=== PATIENT | female | born 1970 | race Caucasian/White ===

== ENCOUNTER 2022-11-19 13:25 | Outpatient (CLI) | payer BC | END 2022-11-19 13:26 | disposition home or self-care (01) | LOC: BICRAD 13:25 | PROVIDERS: ATTEND Internal Medicine | DX: Z08 Encounter for follow-up examination after completed treatment for malignant neoplasm (principal); Z85.528 Personal history of other malignant neoplasm of kidney | CPT/HCPCS: 71046 ==

== ENCOUNTER 2023-10-03 09:00 | Outpatient (CLI) | payer BC | END 2023-10-03 09:01 | disposition home or self-care (01) | LOC: BICMRI 09:00 | PROVIDERS: ATTEND Internal Medicine | DX: M25.561 Pain in right knee (principal); M17.11 Unilateral primary osteoarthritis, right knee; M23.303 Other meniscus derangements, unspecified medial meniscus, right knee ==

== ENCOUNTER 2024-10-07 12:35 | Outpatient (CLI) | payer BC | END 2024-10-07 12:36 | disposition home or self-care (01) | LOC: MRI 12:35 | PROVIDERS: ATTEND Internal Medicine | DX: G43.909 Migraine, unspecified, not intractable, without status migrainosus (principal); H53.123 Transient visual loss, bilateral; R90.82 White matter disease, unspecified | CPT/HCPCS: 70553; 76376 ==